=== PATIENT | male | born 1960 | race Caucasian/White ===

== ENCOUNTER 2022-03-18 07:43 | Emergency (ER) | payer SELFPAY ==
[2022-03-18] MEDS ORDERED: Naloxone 0.4 MG/ML SDV IVPUSH ONE (09:22)
[2022-03-18] MEDS ORDERED: EPINEPHrine 1:10,000 1 MG/10 ML Syringe IVPUSH ONE ×2 (09:30→10:05)
[2022-03-18] MEDS ORDERED: Sodium Bicarbonate 8.4% 50 MEQ/50 ML Syringe IVPUSH ONE ×2 (09:44)
[2022-03-18] MEDS ORDERED: Esmolol 100 MG/10 ML SDV IV STA (09:45)
[2022-03-18 11:01] LABS: HIV12 AG/AB 4TH GEN W/REFLEX < 0.1 INDEX (<1.0)
== END 2022-03-18 11:14 | disposition expired ==
LOC: MW.ED 07:43
DX: I46.9 Cardiac arrest, cause unspecified (principal); Z88.5 Allergy status to narcotic agent; Z79.899 Other long term (current) drug therapy
CPT/HCPCS: 31500; 36415; 36680; 86706; 86803; 87340; 87389; 92950; 96374; 96375; 99285; J0171; J2310; J3490; 99291